=== PATIENT | male | born 1955 | race Caucasian/White ===

== ENCOUNTER 2024-02-26 16:23 | Inpatient (IN) | payer MEDICARE, BC ==
[~2024-02-26] VITALS: Ht 175.3 cm; Wt 91.8 kg
[2024-02-26 19:11] LABS: BASOPHILS # (AUTO) 0.1 X10'3 (0-0.2); BASOPHILS % (AUTO) 1.3 % (0-1); EOSINOPHILS % (AUTO) 0.6 % (0-6); HEMATOCRIT 40.4 % (42.0-52.0); HEMOGLOBIN 13.5 g/dl (14.0-17.9); INR 1.3 INR; LYMPHOCYTES # (AUTO) 0.4 X10'3 (1.1-4.8); LYMPHOCYTES % (AUTO) 9.4 % (21-51); MEAN CORPUSCULAR HEMOGLOBIN 33.6 PG (27.0-31.0); MEAN CORPUSCULAR HGB CONC 33.5 g/dL (33.0-36.5); MEAN CORPUSCULAR VOLUME 100.2 FL (78-98); MEAN PLATELET VOLUME 8.1 FL (7.4-10.4); MONOCYTES # (AUTO) 0.5 X10'3 (0-0.9); NEUTROPHILS # (AUTO) 3.6 X10'3 (1.8-7.7); NEUTROPHILS % (AUTO) 78.7 % (42-75); PLATELET COUNT 247 X10'3 (140-440); PROTHROMBIN TIME 13.4 SECONDS (9.0-12.0); RED BLOOD COUNT 4.03 X10'6 (4.70-6.10); WHITE BLOOD COUNT 4.5 X10'3 (4.5-11.0)
[2024-02-26 19:16] LABS: ALANINE AMINOTRANSFERASE 46 U/L (12-78); ALBUMIN 3.5 G/DL (3.4-5.0); ALKALINE PHOSPHATASE 418 IU/L (46-116); ANION GAP 10 (8-16); ASPARTATE AMINO TRANSFERASE 55 U/L (10-37); BILIRUBIN,TOTAL 2.1 MG/DL (0.1-1.0); BLOOD UREA NITROGEN 61 MG/DL (7-18); BUN/CREATININE RATIO 25.3 (10.0-20.0); CALCIUM 9.2 MG/DL (8.5-10.1); CHLORIDE 101 MMOL/L (99-107); CREATININE 2.41 MG/DL (0.60-1.10); GLUCOSE 82 MG/DL (70-104); POTASSIUM 4.2 MMOL/L (3.5-5.1); SODIUM 140 MMOL/L (135-145); TOTAL CARBON DIOXIDE 28.7 MMOL/L (24-32); TOTAL PROTEIN 7.1 G/DL (6.4-8.2); eCRCL 29 ML/MIN; eGFR 27 ML/MIN
[2024-02-26 19:25] LABS: MAGNESIUM 2.7 MG/DL (1.5-2.4); PRO BRAIN NATRIURETIC PEPTIDE 24919 PG/ML (0-125)
[2024-02-26] MEDS ORDERED: potassium Cl 20 mEq SR tablet PO PRN (21:55)
[2024-02-26] MEDS ORDERED: acetaminophen 325mg tablet PO PRN (21:55)
[2024-02-26] MEDS ORDERED: ondansetron/PF 4mg/2ml inj IV PRN (21:55)
[2024-02-26] MEDS ORDERED: mag hydrox/Alum hydrox/simeth 30ml oral suspension PO PRN (21:55)
[2024-02-26] MEDS ORDERED: magnesium Cl slow-release 64mg tablet PO PRN (21:55)
[2024-02-26] MEDS ORDERED: magnesium hydroxide 30ml (MOM) UD suspension PO PRN (21:55)
[2024-02-26] MEDS ORDERED: magnesium sulf-water 2g/50mL 50 ML IV PRN (21:55)
[2024-02-26] MEDS ORDERED: magnesium sulf-water 4G/100mL 100 ML IV PRN (21:55)
[2024-02-26] MEDS ORDERED: potassium Cl 40MEQ/1/2NS 520ml 520 ML IV PRN (21:55)
[2024-02-26] MEDS ORDERED: SACU1TAB PO (22:12)
[2024-02-26] MEDS ORDERED: EMPA10TA PO (22:12)
[2024-02-26] MEDS ORDERED: MIDO5TAB4 PO (22:12)
[2024-02-26] MEDS ORDERED: ASPI-1265 PO (22:12)
[2024-02-26] MEDS ORDERED: AMIO200T27 PO (22:13)
[2024-02-26] MEDS ORDERED: FURO-149 PO (22:14)
[2024-02-26] MEDS ORDERED: METO-384 PO (22:14)
[2024-02-26] MEDS ORDERED: MAGN250T11 PO (22:17)
[2024-02-26] MEDS ORDERED: ATOR40TA72 PO (22:17)
[2024-02-26] MEDS ORDERED: SODI10PO PO (22:19)
[2024-02-26] MEDS: SODIUM ZIRCONIUM CYCLOSILICATE 10 GM POWD.PACK PO SCH (23:55)
[2024-02-27] VITALS (12 sets, daily range): BP systolic 93–105; BP diastolic 64–76; PULSE 60–74; RESP 8–22; TEMP 96.9–97.8; O2SAT 95–98
[2024-02-27 00:08] LABS: BILIRUBIN,URINE NEGATIVE (Neg); CLARITY,URINE CLEAR (Clear); COLOR,URINE YELLOW (Yellow); GLUCOSE, URINE 100 mg/dl (Neg); KETONES,URINE NEGATIVE (Neg); LEUKOCYTE ESTERASE ,URINE NEGATIVE (Neg); NITRITES, URINE NEGATIVE (Neg); OCCULT BLOOD,URINE TRACE-INTACT (Neg); PH,URINE 5.5 (4.8-8.0); PROTEIN,URINE TRACE mg/dl (Neg); UROBILINOGEN,URINE 0.2 E.U/dL (0.2-1.0)
[2024-02-27 00:11] LABS: UA COLLECTION TYPE CLN CATCH MIDSTREAM
[2024-02-27 00:18] LABS: BACTERIA,URINE FEW /HPF (Neg); FINE GRANULAR CAST 0-3 /LPF (NEGATIVE); MUCUS STRANDS FEW /LPF (Neg); SQUAMOUS EPITHELIAL CELL,UR FEW /LPF (FEW); WBC,URINE 0-4 /HPF (0-4)
[2024-02-27] MEDS: furosemide 40mg/4ml inj IV ONE (06:02)
[2024-02-27] MEDS: albumin (human) 25% 100ml IV 100 ML IV ONE (06:03)
[2024-02-27 06:16] LABS: BASOPHILS # (AUTO) 0.1 X10'3 (0-0.2); BASOPHILS % (AUTO) 1.6 % (0-1); EOSINOPHILS % (AUTO) 0.4 % (0-6); HEMOGLOBIN 14.1 g/dl (14.0-17.9); LYMPHOCYTES # (AUTO) 0.6 X10'3 (1.1-4.8); LYMPHOCYTES % (AUTO) 11.8 % (21-51); MEAN CORPUSCULAR HEMOGLOBIN 33.1 PG (27.0-31.0); MEAN CORPUSCULAR HGB CONC 32.7 g/dL (33.0-36.5); MEAN CORPUSCULAR VOLUME 101.2 FL (78-98); MEAN PLATELET VOLUME 8.3 FL (7.4-10.4); MONOCYTES # (AUTO) 0.4 X10'3 (0-0.9); MONOCYTES % (AUTO) 7.8 % (2-12); NEUTROPHILS # (AUTO) 3.7 X10'3 (1.8-7.7); NEUTROPHILS % (AUTO) 78.4 % (42-75); PLATELET COUNT 243 X10'3 (140-440); RED BLOOD COUNT 4.25 X10'6 (4.70-6.10); RED CELL DISTRIBUTION WIDTH 18.1 % (11.5-14.5); WHITE BLOOD COUNT 4.7 X10'3 (4.5-11.0)
[2024-02-27 06:21] LABS: ALANINE AMINOTRANSFERASE 42 U/L (12-78); ALBUMIN 3.5 G/DL (3.4-5.0); ALBUMIN/GLOBULIN RATIO 0.9 (1.1-1.5); ALKALINE PHOSPHATASE 412 IU/L (46-116); ANION GAP 11 (8-16); ASPARTATE AMINO TRANSFERASE 48 U/L (10-37); BILIRUBIN,TOTAL 2.5 MG/DL (0.1-1.0); BLOOD UREA NITROGEN 62 MG/DL (7-18); BUN/CREATININE RATIO 24.5 (10.0-20.0); CALCIUM 9.5 MG/DL (8.5-10.1); CHLORIDE 101 MMOL/L (99-107); CREATININE 2.53 MG/DL (0.60-1.10); GLUCOSE 94 MG/DL (70-104); MAGNESIUM 2.9 MG/DL (1.5-2.4); SODIUM 140 MMOL/L (135-145); TOTAL CARBON DIOXIDE 28.2 MMOL/L (24-32); TOTAL PROTEIN 7.2 G/DL (6.4-8.2); eCRCL 28 ML/MIN; eGFR 25 ML/MIN
[2024-02-27] MEDS: aspirin 81mg tab.chew PO SCH (07:47)
[2024-02-27] MEDS: amiodarone 200mg tablet PO SCH (07:48)
[2024-02-27] MEDS: midodrine 5mg tablet PO SCH ×2 (07:48→21:56)
[2024-02-27] MEDS: EMPAGLIFLOZIN 10 MG TABLET PO SCH (07:48)
[2024-02-27] MEDS: atorvastatin 20mg tablet PO SCH (07:48)
[2024-02-27] MEDS: sacubitril/valsartan 24mg-26mg tablet PO SCH (07:49)
[2024-02-27] MEDS: heparin, porcine 5000 units/ml vial SQ SCH (07:53)
[2024-02-27] MEDS: K and/or MAG REPLACEMENT MC SCH (08:00)
[2024-02-27] MEDS ORDERED: MAGNESIUM OXIDE PO SCH (08:00)
[2024-02-27] MEDS ORDERED: furosemide 40mg tablet PO SCH (08:00)
[2024-02-27] MEDS: furosemide 40mg/4ml inj IV SCH (08:02)
[2024-02-27] MEDS: docusate sod 100mg capsule PO SCH (08:03)
[2024-02-27] MEDS ORDERED: furosemide inj 1,000 MG in normal saline 250ml IV soln 150 ML IV SCH (15:20)
[2024-02-27] MEDS ORDERED: furosemide 20 MG/2 ML vial IV SCH (20:00)
[2024-02-27] MEDS: furosemide inj 100 MG in normal saline 100ml IV soln 90 ML IV SCH (20:54)
[2024-02-27] MEDS: DOBUTamine-DoBUTrex 500mg/D5W 250 ML IV SCH (21:15)
[2024-02-27] MEDS ORDERED: traMADol 50MG tablet PO ONE (23:45)
[2024-02-28] VITALS (17 sets, daily range): BP systolic 84–107; BP diastolic 56–77; PULSE 55–77; RESP 12–22; TEMP 97–98; O2SAT 95–100
[2024-02-28 07:10] LABS: BASOPHILS % (AUTO) 0.8 % (0-1); EOSINOPHILS % (AUTO) 0.5 % (0-6); HEMATOCRIT 38.6 % (42.0-52.0); LYMPHOCYTES # (AUTO) 0.5 X10'3 (1.1-4.8); LYMPHOCYTES % (AUTO) 9.8 % (21-51); MEAN CORPUSCULAR HEMOGLOBIN 34.1 PG (27.0-31.0); MEAN CORPUSCULAR HGB CONC 33.6 g/dL (33.0-36.5); MEAN CORPUSCULAR VOLUME 101.4 FL (78-98); MEAN PLATELET VOLUME 8.7 FL (7.4-10.4); MONOCYTES # (AUTO) 0.5 X10'3 (0-0.9); MONOCYTES % (AUTO) 8.7 % (2-12); NEUTROPHILS # (AUTO) 4.5 X10'3 (1.8-7.7); NEUTROPHILS % (AUTO) 80.2 % (42-75); PLATELET COUNT 219 X10'3 (140-440); RED BLOOD COUNT 3.81 X10'6 (4.70-6.10); RED CELL DISTRIBUTION WIDTH 18.2 % (11.5-14.5); WHITE BLOOD COUNT 5.5 X10'3 (4.5-11.0)
[2024-02-28 07:25] LABS: ALANINE AMINOTRANSFERASE 36 U/L (12-78); ALBUMIN 3.3 G/DL (3.4-5.0); ALKALINE PHOSPHATASE 359 IU/L (46-116); ANION GAP 10 (8-16); ASPARTATE AMINO TRANSFERASE 41 U/L (10-37); BILIRUBIN,TOTAL 2.3 MG/DL (0.1-1.0); BLOOD UREA NITROGEN 62 MG/DL (7-18); BUN/CREATININE RATIO 25.3 (10.0-20.0); CALCIUM 8.9 MG/DL (8.5-10.1); CHLORIDE 102 MMOL/L (99-107); CREATININE 2.45 MG/DL (0.60-1.10); GLUCOSE 91 MG/DL (70-104); MAGNESIUM 2.8 MG/DL (1.5-2.4); PHOSPHORUS 3.6 MG/DL (2.3-4.5); POTASSIUM 3.6 MMOL/L (3.5-5.1); SODIUM 141 MMOL/L (135-145); TOTAL CARBON DIOXIDE 28.9 MMOL/L (24-32); TOTAL PROTEIN 6.6 G/DL (6.4-8.2); eCRCL 28 ML/MIN; eGFR 26 ML/MIN
[2024-02-28 13:38] LABS: GLUCOSE,BODY FLUID 101 MG/DL; LDH,BODY FLUID 102 U/L; TOTAL PROTEIN,BODY FLUID 3.9 G/DL
[2024-02-28 14:09] LABS: BF MESOTHELIAL CELLS MANY; BF RBC COUNT 4350 /CU MM; BF WBC COUNT 100 /CU MM (0-1000); BFAPPEAR CLOUDY; BFCOLOR YELLOW; BFSOURCE ASCITES FLD; BFVOLUME 60 ML; LYMPHOCYTES,BODY FLUID 58 %; MONOCYTES,BODY FLUID 31 %; NEUTROPHILS,BODY FLUID 11 %
[2024-02-28] MEDS: albumin (human) 25% 100 ML IV solution IV ONE (14:37)
[2024-02-28 17:46] LABS: ALBUMIN 3.5 G/DL (3.4-5.0); ANION GAP 9 (8-16); BLOOD UREA NITROGEN 60 MG/DL (7-18); BUN/CREATININE RATIO 24.3 (10.0-20.0); CALCIUM 8.9 MG/DL (8.5-10.1); CHLORIDE 102 MMOL/L (99-107); CREATININE 2.47 MG/DL (0.60-1.10); GLUCOSE 106 MG/DL (70-104); PHOSPHORUS 3.6 MG/DL (2.3-4.5); POTASSIUM 3.8 MMOL/L (3.5-5.1); SODIUM 142 MMOL/L (135-145); TOTAL CARBON DIOXIDE 31.4 MMOL/L (24-32); eCRCL 28 ML/MIN; eGFR 26 ML/MIN
[2024-02-28 22:10] LABS: ALBUMIN 3.7 G/DL (3.4-5.0); ANION GAP 9 (8-16); BLOOD UREA NITROGEN 61 MG/DL (7-18); BUN/CREATININE RATIO 24.5 (10.0-20.0); CHLORIDE 102 MMOL/L (99-107); CREATININE 2.49 MG/DL (0.60-1.10); GLUCOSE 108 MG/DL (70-104); PHOSPHORUS 3.7 MG/DL (2.3-4.5); POTASSIUM 3.3 MMOL/L (3.5-5.1); SODIUM 142 MMOL/L (135-145); TOTAL CARBON DIOXIDE 30.9 MMOL/L (24-32); eCRCL 28 ML/MIN; eGFR 26 ML/MIN
[2024-02-28] MEDS: potassium Cl 20 mEq SR tablet PO PRN (23:29)
[2024-02-29] VITALS (11 sets, daily range): BP systolic 86–98; BP diastolic 57–64; PULSE 60–70; RESP 14–19; TEMP 97.1–97.6; O2SAT 95–99
[2024-02-29 05:02] LABS: BASOPHILS % (AUTO) 0.6 % (0-1); EOSINOPHILS % (AUTO) 0.8 % (0-6); HEMATOCRIT 36.8 % (42.0-52.0); HEMOGLOBIN 12.4 g/dl (14.0-17.9); LYMPHOCYTES # (AUTO) 0.3 X10'3 (1.1-4.8); MEAN CORPUSCULAR HEMOGLOBIN 34.1 PG (27.0-31.0); MEAN CORPUSCULAR HGB CONC 33.7 g/dL (33.0-36.5); MEAN CORPUSCULAR VOLUME 101.2 FL (78-98); MEAN PLATELET VOLUME 8.5 FL (7.4-10.4); MONOCYTES # (AUTO) 0.4 X10'3 (0-0.9); MONOCYTES % (AUTO) 8.3 % (2-12); NEUTROPHILS # (AUTO) 4.4 X10'3 (1.8-7.7); NEUTROPHILS % (AUTO) 84.3 % (42-75); PLATELET COUNT 192 X10'3 (140-440); RED BLOOD COUNT 3.64 X10'6 (4.70-6.10); RED CELL DISTRIBUTION WIDTH 17.8 % (11.5-14.5); WHITE BLOOD COUNT 5.3 X10'3 (4.5-11.0)
[2024-02-29 05:16] LABS: ALANINE AMINOTRANSFERASE 38 U/L (12-78); ALBUMIN 3.5 G/DL (3.4-5.0); ALBUMIN/GLOBULIN RATIO 1.2 (1.1-1.5); ALKALINE PHOSPHATASE 350 IU/L (46-116); ANION GAP 11 (8-16); ASPARTATE AMINO TRANSFERASE 48 U/L (10-37); BILIRUBIN,TOTAL 2.2 MG/DL (0.1-1.0); BLOOD UREA NITROGEN 62 MG/DL (7-18); BUN/CREATININE RATIO 24.9 (10.0-20.0); CALCIUM 8.9 MG/DL (8.5-10.1); CHLORIDE 104 MMOL/L (99-107); CREATININE 2.49 MG/DL (0.60-1.10); GLUCOSE 100 MG/DL (70-104); MAGNESIUM 2.6 MG/DL (1.5-2.4); PHOSPHORUS 3.4 MG/DL (2.3-4.5); POTASSIUM 3.5 MMOL/L (3.5-5.1); SODIUM 143 MMOL/L (135-145); TOTAL PROTEIN 6.5 G/DL (6.4-8.2); eCRCL 28 ML/MIN; eGFR 26 ML/MIN
[2024-02-29 06:54] LABS: HBSAG SCREEN Negative (Negative); HEP A AB, IGM Negative (Negative); HEP B CORE AB, IGM Negative (Negative); HEP B SURF AB Non Reactive (.); HEPATITIS C VIRUS ANTIBODY Non Reactive (Non Reactive)
[2024-02-29 10:26] LABS: ALBUMIN 3.3 G/DL (3.4-5.0); ANION GAP 8 (8-16); BLOOD UREA NITROGEN 58 MG/DL (7-18); BUN/CREATININE RATIO 24.5 (10.0-20.0); CALCIUM 8.7 MG/DL (8.5-10.1); CHLORIDE 105 MMOL/L (99-107); CREATININE 2.37 MG/DL (0.60-1.10); GLUCOSE 124 MG/DL (70-104); PHOSPHORUS 3.1 MG/DL (2.3-4.5); POTASSIUM 3.4 MMOL/L (3.5-5.1); SODIUM 141 MMOL/L (135-145); TOTAL CARBON DIOXIDE 27.7 MMOL/L (24-32); eCRCL 29 ML/MIN; eGFR 27 ML/MIN
[2024-02-29 17:13] LABS: ALBUMIN 3.5 G/DL (3.4-5.0); ANION GAP 7 (8-16); BLOOD UREA NITROGEN 56 MG/DL (7-18); BUN/CREATININE RATIO 24.3 (10.0-20.0); CALCIUM 8.6 MG/DL (8.5-10.1); CHLORIDE 104 MMOL/L (99-107); GLUCOSE 81 MG/DL (70-104); PHOSPHORUS 3.1 MG/DL (2.3-4.5); POTASSIUM 3.3 MMOL/L (3.5-5.1); SODIUM 144 MMOL/L (135-145); TOTAL CARBON DIOXIDE 33.4 MMOL/L (24-32); eCRCL 30 ML/MIN; eGFR 28 ML/MIN
[2024-02-29] MEDS: spironolactone 25 MG tablet PO SCH (21:00)
[2024-02-29 22:15] LABS: ALBUMIN 3.5 G/DL (3.4-5.0); ANION GAP 5 (8-16); BLOOD UREA NITROGEN 52 MG/DL (7-18); BUN/CREATININE RATIO 22.9 (10.0-20.0); CALCIUM 8.6 MG/DL (8.5-10.1); CHLORIDE 105 MMOL/L (99-107); CREATININE 2.27 MG/DL (0.60-1.10); GLUCOSE 74 MG/DL (70-104); PHOSPHORUS 2.9 MG/DL (2.3-4.5); POTASSIUM 3.5 MMOL/L (3.5-5.1); SODIUM 143 MMOL/L (135-145); TOTAL CARBON DIOXIDE 33.2 MMOL/L (24-32); eCRCL 31 ML/MIN; eGFR 29 ML/MIN
[2024-03-01] VITALS (17 sets, daily range): BP systolic 80–111; BP diastolic 54–73; PULSE 60–71; RESP 12–20; TEMP 97.1–97.8; O2SAT 92–99
[2024-03-01] MEDS ORDERED: magnesium Cl slow-release 64mg tablet PO PRN (06:25)
[2024-03-01] MEDS ORDERED: magnesium sulf-water 4G/100mL 100 ML IV PRN (06:25)
[2024-03-01] MEDS ORDERED: potassium Cl 20 mEq SR tablet PO PRN (06:25)
[2024-03-01] MEDS ORDERED: magnesium sulf-water 2g/50mL 50 ML IV PRN (06:25)
[2024-03-01] MEDS ORDERED: potassium Cl 40MEQ/1/2NS 520ml 520 ML IV PRN (06:25)
[2024-03-01 07:41] LABS: BASOPHILS # (AUTO) 0.1 X10'3 (0-0.2); BASOPHILS % (AUTO) 1.1 % (0-1); EOSINOPHILS % (AUTO) 0.8 % (0-6); HEMATOCRIT 37.2 % (42.0-52.0); HEMOGLOBIN 12.4 g/dl (14.0-17.9); LYMPHOCYTES # (AUTO) 0.3 X10'3 (1.1-4.8); LYMPHOCYTES % (AUTO) 7.5 % (21-51); MEAN CORPUSCULAR HEMOGLOBIN 33.5 PG (27.0-31.0); MEAN CORPUSCULAR HGB CONC 33.3 g/dL (33.0-36.5); MEAN CORPUSCULAR VOLUME 100.4 FL (78-98); MEAN PLATELET VOLUME 8.5 FL (7.4-10.4); MONOCYTES # (AUTO) 0.4 X10'3 (0-0.9); MONOCYTES % (AUTO) 8.4 % (2-12); NEUTROPHILS # (AUTO) 3.8 X10'3 (1.8-7.7); NEUTROPHILS % (AUTO) 82.2 % (42-75); PLATELET COUNT 168 X10'3 (140-440); RED BLOOD COUNT 3.71 X10'6 (4.70-6.10); RED CELL DISTRIBUTION WIDTH 17.9 % (11.5-14.5); WHITE BLOOD COUNT 4.6 X10'3 (4.5-11.0)
[2024-03-01 07:54] LABS: ALBUMIN 3.4 G/DL (3.4-5.0); ANION GAP 11 (8-16); BLOOD UREA NITROGEN 51 MG/DL (7-18); BUN/CREATININE RATIO 24.3 (10.0-20.0); CALCIUM 8.8 MG/DL (8.5-10.1); CHLORIDE 104 MMOL/L (99-107); GLUCOSE 86 MG/DL (70-104); PHOSPHORUS 2.9 MG/DL (2.3-4.5); SODIUM 145 MMOL/L (135-145); TOTAL CARBON DIOXIDE 30.2 MMOL/L (24-32); eCRCL 33 ML/MIN; eGFR 31 ML/MIN
[2024-03-01 08:15] LABS: ALANINE AMINOTRANSFERASE 49 U/L (12-78); ALBUMIN 3.3 G/DL (3.4-5.0); ALKALINE PHOSPHATASE 366 IU/L (46-116); ANION GAP 11 (8-16); ASPARTATE AMINO TRANSFERASE 64 U/L (10-37); BILIRUBIN,TOTAL 2.1 MG/DL (0.1-1.0); BLOOD UREA NITROGEN 50 MG/DL (7-18); BUN/CREATININE RATIO 23.9 (10.0-20.0); CALCIUM 8.7 MG/DL (8.5-10.1); CHLORIDE 104 MMOL/L (99-107); CREATININE 2.09 MG/DL (0.60-1.10); GLUCOSE 83 MG/DL (70-104); MAGNESIUM 2.7 MG/DL (1.5-2.4); PHOSPHORUS 2.9 MG/DL (2.3-4.5); POTASSIUM 3.9 MMOL/L (3.5-5.1); SODIUM 144 MMOL/L (135-145); TOTAL CARBON DIOXIDE 29.5 MMOL/L (24-32); TOTAL PROTEIN 6.5 G/DL (6.4-8.2); eCRCL 33 ML/MIN; eGFR 32 ML/MIN
[2024-03-01 10:07] LABS: ALBUMIN 3.3 G/DL (3.4-5.0); ANION GAP 6 (8-16); BLOOD UREA NITROGEN 50 MG/DL (7-18); BUN/CREATININE RATIO 23.1 (10.0-20.0); CALCIUM 8.8 MG/DL (8.5-10.1); CHLORIDE 105 MMOL/L (99-107); CREATININE 2.16 MG/DL (0.60-1.10); GLUCOSE 131 MG/DL (70-104); MAGNESIUM 2.6 MG/DL (1.5-2.4); PHOSPHORUS 2.8 MG/DL (2.3-4.5); POTASSIUM 3.6 MMOL/L (3.5-5.1); SODIUM 142 MMOL/L (135-145); TOTAL CARBON DIOXIDE 31.1 MMOL/L (24-32); eCRCL 32 ML/MIN; eGFR 30 ML/MIN
[2024-03-01 16:29] LABS: ALBUMIN 3.2 G/DL (3.4-5.0); ANION GAP 6 (8-16); BLOOD UREA NITROGEN 47 MG/DL (7-18); CALCIUM 8.7 MG/DL (8.5-10.1); CHLORIDE 105 MMOL/L (99-107); CREATININE 2.04 MG/DL (0.60-1.10); GLUCOSE 106 MG/DL (70-104); PHOSPHORUS 3.1 MG/DL (2.3-4.5); POTASSIUM 3.8 MMOL/L (3.5-5.1); SODIUM 140 MMOL/L (135-145); TOTAL CARBON DIOXIDE 29.1 MMOL/L (24-32); eCRCL 34 ML/MIN; eGFR 33 ML/MIN
[2024-03-01 22:00] LABS: ALBUMIN 3.4 G/DL (3.4-5.0); ANION GAP 6 (8-16); BLOOD UREA NITROGEN 46 MG/DL (7-18); BUN/CREATININE RATIO 20.4 (10.0-20.0); CALCIUM 8.4 MG/DL (8.5-10.1); CHLORIDE 103 MMOL/L (99-107); CREATININE 2.26 MG/DL (0.60-1.10); GLUCOSE 77 MG/DL (70-104); POTASSIUM 3.4 MMOL/L (3.5-5.1); SODIUM 141 MMOL/L (135-145); TOTAL CARBON DIOXIDE 32.5 MMOL/L (24-32); eCRCL 31 ML/MIN; eGFR 29 ML/MIN
[2024-03-01] MEDS: potassium Cl 20 mEq SR tablet PO PRN (22:16)
[2024-03-02] VITALS (13 sets, daily range): BP systolic 79–105; BP diastolic 49–77; PULSE 58–77; RESP 16–23; TEMP 97–98.9; O2SAT 95–100
[2024-03-02 06:45] LABS: ALANINE AMINOTRANSFERASE 45 U/L (12-78); ALBUMIN 3.4 G/DL (3.4-5.0); ALKALINE PHOSPHATASE 381 IU/L (46-116); ANION GAP 10 (8-16); ASPARTATE AMINO TRANSFERASE 58 U/L (10-37); BILIRUBIN,TOTAL 2.5 MG/DL (0.1-1.0); BLOOD UREA NITROGEN 45 MG/DL (7-18); BUN/CREATININE RATIO 21.2 (10.0-20.0); CALCIUM 8.6 MG/DL (8.5-10.1); CHLORIDE 103 MMOL/L (99-107); CREATININE 2.12 MG/DL (0.60-1.10); GLUCOSE 86 MG/DL (70-104); MAGNESIUM 2.6 MG/DL (1.5-2.4); PHOSPHORUS 2.9 MG/DL (2.3-4.5); POTASSIUM 3.8 MMOL/L (3.5-5.1); SODIUM 143 MMOL/L (135-145); TOTAL CARBON DIOXIDE 30.5 MMOL/L (24-32); TOTAL PROTEIN 6.7 G/DL (6.4-8.2); eCRCL 33 ML/MIN; eGFR 31 ML/MIN
[2024-03-02 06:49] LABS: BASOPHILS % (AUTO) 0.6 % (0-1); HEMATOCRIT 36.2 % (42.0-52.0); HEMOGLOBIN 12.2 g/dl (14.0-17.9); LYMPHOCYTES # (AUTO) 0.4 X10'3 (1.1-4.8); LYMPHOCYTES % (AUTO) 8.1 % (21-51); MEAN CORPUSCULAR HEMOGLOBIN 33.8 PG (27.0-31.0); MEAN CORPUSCULAR HGB CONC 33.6 g/dL (33.0-36.5); MEAN CORPUSCULAR VOLUME 100.7 FL (78-98); MEAN PLATELET VOLUME 8.7 FL (7.4-10.4); MONOCYTES # (AUTO) 0.4 X10'3 (0-0.9); MONOCYTES % (AUTO) 8.7 % (2-12); NEUTROPHILS # (AUTO) 3.9 X10'3 (1.8-7.7); NEUTROPHILS % (AUTO) 81.6 % (42-75); PLATELET COUNT 185 X10'3 (140-440); WHITE BLOOD COUNT 4.8 X10'3 (4.5-11.0)
[2024-03-02 10:32] LABS: ALBUMIN 3.3 G/DL (3.4-5.0); ANION GAP 11 (8-16); BLOOD UREA NITROGEN 43 MG/DL (7-18); BUN/CREATININE RATIO 19.2 (10.0-20.0); CALCIUM 8.5 MG/DL (8.5-10.1); CHLORIDE 103 MMOL/L (99-107); CREATININE 2.24 MG/DL (0.60-1.10); GLUCOSE 100 MG/DL (70-104); PHOSPHORUS 2.8 MG/DL (2.3-4.5); POTASSIUM 3.7 MMOL/L (3.5-5.1); SODIUM 145 MMOL/L (135-145); TOTAL CARBON DIOXIDE 30.7 MMOL/L (24-32); eCRCL 31 ML/MIN; eGFR 29 ML/MIN
[2024-03-02 17:34] LABS: ALBUMIN 3.3 G/DL (3.4-5.0); ANION GAP 7 (8-16); BLOOD UREA NITROGEN 42 MG/DL (7-18); BUN/CREATININE RATIO 18.9 (10.0-20.0); CALCIUM 8.6 MG/DL (8.5-10.1); CHLORIDE 103 MMOL/L (99-107); CREATININE 2.22 MG/DL (0.60-1.10); GLUCOSE 97 MG/DL (70-104); PHOSPHORUS 2.9 MG/DL (2.3-4.5); POTASSIUM 3.8 MMOL/L (3.5-5.1); SODIUM 139 MMOL/L (135-145); TOTAL CARBON DIOXIDE 29.4 MMOL/L (24-32); eCRCL 31 ML/MIN; eGFR 30 ML/MIN
[2024-03-02 22:03] LABS: ALBUMIN 3.5 G/DL (3.4-5.0); ANION GAP 5 (8-16); BLOOD UREA NITROGEN 42 MG/DL (7-18); BUN/CREATININE RATIO 19.4 (10.0-20.0); CALCIUM 8.8 MG/DL (8.5-10.1); CHLORIDE 102 MMOL/L (99-107); CREATININE 2.17 MG/DL (0.60-1.10); GLUCOSE 93 MG/DL (70-104); PHOSPHORUS 3.2 MG/DL (2.3-4.5); POTASSIUM 3.7 MMOL/L (3.5-5.1); SODIUM 140 MMOL/L (135-145); TOTAL CARBON DIOXIDE 33.2 MMOL/L (24-32); eCRCL 32 ML/MIN; eGFR 30 ML/MIN
[2024-03-03] VITALS (12 sets, daily range): BP systolic 89–103; BP diastolic 58–74; PULSE 62–83; RESP 14–22; TEMP 97.3–98.1; O2SAT 66–99
[2024-03-03 07:20] LABS: ALBUMIN 3.3 G/DL (3.4-5.0); ANION GAP 9 (8-16); BLOOD UREA NITROGEN 45 MG/DL (7-18); BUN/CREATININE RATIO 22.1 (10.0-20.0); CALCIUM 8.6 MG/DL (8.5-10.1); CHLORIDE 101 MMOL/L (99-107); CREATININE 2.04 MG/DL (0.60-1.10); GLUCOSE 90 MG/DL (70-104); MAGNESIUM 2.7 MG/DL (1.5-2.4); PHOSPHORUS 3.1 MG/DL (2.3-4.5); POTASSIUM 3.6 MMOL/L (3.5-5.1); SODIUM 139 MMOL/L (135-145); TOTAL CARBON DIOXIDE 28.8 MMOL/L (24-32); eCRCL 34 ML/MIN; eGFR 33 ML/MIN
[2024-03-03 10:55] LABS: ALBUMIN 3.4 G/DL (3.4-5.0); ANION GAP 8 (8-16); BLOOD UREA NITROGEN 39 MG/DL (7-18); BUN/CREATININE RATIO 18.6 (10.0-20.0); CALCIUM 8.7 MG/DL (8.5-10.1); CHLORIDE 101 MMOL/L (99-107); GLUCOSE 105 MG/DL (70-104); PHOSPHORUS 2.9 MG/DL (2.3-4.5); POTASSIUM 3.6 MMOL/L (3.5-5.1); SODIUM 139 MMOL/L (135-145); TOTAL CARBON DIOXIDE 29.6 MMOL/L (24-32); eCRCL 33 ML/MIN; eGFR 31 ML/MIN
[2024-03-03 13:13] LABS: ATYPICAL PANCA <1:20 titer (Neg:<1:20); CYTOPLASMIC (C-ANCA) <1:20 titer (Neg:<1:20); PERINUCLEAR (P-ANCA) <1:20 titer (Neg:<1:20)
[2024-03-03 17:30] LABS: ALBUMIN 3.4 G/DL (3.4-5.0); ANION GAP 9 (8-16); BLOOD UREA NITROGEN 41 MG/DL (7-18); BUN/CREATININE RATIO 17.4 (10.0-20.0); CALCIUM 8.6 MG/DL (8.5-10.1); CHLORIDE 100 MMOL/L (99-107); CREATININE 2.35 MG/DL (0.60-1.10); GLUCOSE 105 MG/DL (70-104); PHOSPHORUS 3.3 MG/DL (2.3-4.5); POTASSIUM 3.8 MMOL/L (3.5-5.1); SODIUM 139 MMOL/L (135-145); TOTAL CARBON DIOXIDE 30.1 MMOL/L (24-32); eCRCL 30 ML/MIN; eGFR 28 ML/MIN
[2024-03-03 22:46] LABS: ALBUMIN 3.6 G/DL (3.4-5.0); ANION GAP 9 (8-16); BLOOD UREA NITROGEN 41 MG/DL (7-18); BUN/CREATININE RATIO 17.5 (10.0-20.0); CALCIUM 8.8 MG/DL (8.5-10.1); CHLORIDE 98 MMOL/L (99-107); CREATININE 2.34 MG/DL (0.60-1.10); GLUCOSE 94 MG/DL (70-104); PHOSPHORUS 3.5 MG/DL (2.3-4.5); POTASSIUM 3.9 MMOL/L (3.5-5.1); SODIUM 138 MMOL/L (135-145); TOTAL CARBON DIOXIDE 30.6 MMOL/L (24-32); eCRCL 30 ML/MIN; eGFR 28 ML/MIN
[2024-03-04] VITALS (7 sets, daily range): BP systolic 90–104; BP diastolic 57–78; PULSE 65–101; RESP 16–26; TEMP 98.2–98.4; O2SAT 95–100
[2024-03-04] MEDS: DOBUTamine-DoBUTrex 500mg/D5W 250 ML IV SCH (02:35)
[2024-03-04 08:23] LABS: BASOPHILS % (AUTO) 0.8 % (0-1); EOSINOPHILS % (AUTO) 0.6 % (0-6); HEMATOCRIT 36.4 % (42.0-52.0); HEMOGLOBIN 11.8 g/dl (14.0-17.9); LYMPHOCYTES # (AUTO) 0.4 X10'3 (1.1-4.8); LYMPHOCYTES % (AUTO) 8.3 % (21-51); MEAN CORPUSCULAR HEMOGLOBIN 33.6 PG (27.0-31.0); MEAN CORPUSCULAR HGB CONC 32.5 g/dL (33.0-36.5); MEAN CORPUSCULAR VOLUME 103.5 FL (78-98); MEAN PLATELET VOLUME 8.3 FL (7.4-10.4); MONOCYTES # (AUTO) 0.4 X10'3 (0-0.9); MONOCYTES % (AUTO) 8.3 % (2-12); NEUTROPHILS # (AUTO) 4.1 X10'3 (1.8-7.7); PLATELET COUNT 172 X10'3 (140-440); RED BLOOD COUNT 3.52 X10'6 (4.70-6.10); RED CELL DISTRIBUTION WIDTH 18.9 % (11.5-14.5)
== END 2024-03-04 15:25 | DRG 432 ==
LOC: ER 16:24 → ED HOLD 23:10 → UNDOADMIN 23:10 → ED HOLD 23:20 → EDBEDREQSVC 23:32 → ORTHO 4S 23:55 → ED HOLD 23:55 → PCU 3S 02-27 19:50
PROVIDERS: ADMIT Internal Medicine Pulmonary Disease; ATTEND Internal Medicine
PROC: 0W9G3ZZ Drainage of Peritoneal Cavity, Percutaneous Approach (ICD-10-PCS; principal; 2024-02-28)
DX: K74.69 Other cirrhosis of liver (principal); I50.23 Acute on chronic systolic (congestive) heart failure; J96.91 Respiratory failure, unspecified with hypoxia; I13.0 Hypertensive heart and chronic kidney disease with heart failure and stage 1 through stage 4 chronic kidney disease, or unspecified chronic kidney disease; R18.8 Other ascites; E87.3 Alkalosis; E87.6 Hypokalemia; E78.5 Hyperlipidemia, unspecified; I25.10 Atherosclerotic heart disease of native coronary artery without angina pectoris; N18.32 Chronic kidney disease, stage 3b; I95.9 Hypotension, unspecified; E83.41 Hypermagnesemia; Z95.810 Presence of automatic (implantable) cardiac defibrillator; Z88.0 Allergy status to penicillin; Z86.16 Personal history of COVID-19; Z79.82 Long term (current) use of aspirin; Z79.899 Other long term (current) drug therapy; Z95.5 Presence of coronary angioplasty implant and graft
CPT/HCPCS: 36415; 49083; 71045; 74176; 80053; 80069; 81001; 81003; 82945; 83605; 83615; 83735; 83880; 84100; 84157; 84484; 85025; 85610; 86038; 86256; 86705; 86706; 86709; 86803; 87040; 87070; 87075; 87081; 87340; 87522; 89051; 93005; 93306; 93975; 97116; 97161; 97530; 99285; A6213; A6258; A6446; A6449; G0378; J1250; J1644; J1940; P9047

== ENCOUNTER 2024-05-08 07:28 | Day surgery (SDC) | payer MEDICARE, BC ==
[~2024-05-08] VITALS: Ht 175.3 cm; Wt 91.0 kg
[2024-05-08] VITALS (21 sets, daily range): BP systolic 94–108; BP diastolic 61–97; PULSE 59–63; RESP 16–18; TEMP 97.4; O2SAT 96–100
[~2024-05-08 07:28] MED LIST: AMIO200T27 PO; ASPI-1265 PO; ATOR40TA72 PO; DOBU500I5 IV; DOCU100C40 PO; EMPA10TA PO; MIDO5TAB4 PO; SODI10PO PO; SPIR25TA5 PO; lasix IV
[2024-05-08] MEDS ORDERED: METO-395 PO (08:01)
[2024-05-08] MEDS ORDERED: DIPH25TA27 PO (08:01)
[2024-05-08] MEDS ORDERED: FURO80TA3 PO (08:01)
[2024-05-08] MEDS ORDERED: MILK175C5 PO (08:01)
[2024-05-08] MEDS: albumin (human) 25% 100 ML IV solution IV PRN (09:35)
== END 2024-05-08 11:05 | disposition home or self-care (01) ==
LOC: SSTAY O 07:28
PROVIDERS: ATTEND Internal Medicine Interventional Cardiology
DX: R14.0 Abdominal distension (gaseous) (principal); I13.0 Hypertensive heart and chronic kidney disease with heart failure and stage 1 through stage 4 chronic kidney disease, or unspecified chronic kidney disease; N18.30 Chronic kidney disease, stage 3 unspecified; I50.23 Acute on chronic systolic (congestive) heart failure; I25.10 Atherosclerotic heart disease of native coronary artery without angina pectoris; E78.5 Hyperlipidemia, unspecified; I42.8 Other cardiomyopathies; I95.0 Idiopathic hypotension; I25.5 Ischemic cardiomyopathy; I27.20 Pulmonary hypertension, unspecified; I47.20 Ventricular tachycardia, unspecified; R06.02 Shortness of breath; Z79.82 Long term (current) use of aspirin; Z79.899 Other long term (current) drug therapy; Z95.810 Presence of automatic (implantable) cardiac defibrillator; Z88.0 Allergy status to penicillin
CPT/HCPCS: 49083; A6258; A6402; C1729; P9047; Z7610; A6449